=== PATIENT | male | born 1995 ===

== ENCOUNTER 2024-11-16 21:23 | Emergency (ER) | payer MEDICAID ==
[~2024-11-16] VITALS: Ht 180.3 cm; Wt 134.6 kg
[2024-11-16 21:38] VITALS: TEMP 98.6
[2024-11-16] MEDS: MAG HYDROX/ALUMINUM HYD/SIMETH 30 ML SUSPENSION UDCUP PO ONE (22:28)
[2024-11-16] MEDS: ACETAMINOPHEN 500 MG TABLET PO ONE (22:28)
[2024-11-16] MEDS: FAMOTIDINE 20 MG TABLET PO ONE (22:28)
[2024-11-16 22:40] LABS: BASOPHILS % (AUTO) 0.3 % (0.0-2.0); EOSINOPHILS % (AUTO) 1.6 % (1.0-6.0); HEMATOCRIT 42.6 % (41-53); HEMOGLOBIN 14.2 g/dL (13.5-17.5); LYMPHOCYTES # (AUTO) 3.3 K/uL (1.0-4.8); LYMPHOCYTES % (AUTO) 27.4 % (22.0-44.0); MEAN CORPUSCULAR HEMOGLOBIN 29.5 pg (26.0-34.0); MEAN CORPUSCULAR HGB CONC 33.2 G/dL (31.0-37.0); MEAN CORPUSCULAR VOLUME 89 fL (80-100); MONOCYTES # (AUTO) 0.8 K/uL (0.1-1.0); MONOCYTES % (AUTO) 6.3 % (2.0-9.0); NEUTROPHILS # (AUTO) 7.7 K/uL (1.8-7.7); NEUTROPHILS % (AUTO) 64.4 % (40.0-70.0); PLATELET COUNT (AUTO) 294 K/uL (150-450)
[2024-11-16 23:02] LABS: ANION GAP 9 mmol/L (8-16); CARBON DIOXIDE 31 mmol/L (22-29); CHLORIDE 101 mmol/L (98-107); CREATININE 0.85 mg/dL (0.60-1.30); GLOMERULAR FILTR. RATE CALC > 60 mL/min (>60); GLUCOSE,RANDOM 94 mg/dL (70-110); POTASSIUM 3.4 mmol/L (3.5-5.1); SODIUM SERUM 141 mmol/L (136-145); UREA NITROGEN, BLOOD 10 mg/dL (7-18)
[2024-11-16 23:11] LABS: TROPONIN I-HIGH SENSITIVITY 11 ng/L (<76)
[2024-11-17] MEDS: KETOROLAC TROMETHAMINE 30 MG/ML VIAL IM ONE (00:04)
[2024-11-17 01:05] LABS: TROPONIN I-HIGH SENSITIVITY 10 ng/L (<76)
[2024-11-17 01:30] VITALS: BP 163/97; PULSE 8; RESP 16; O2SAT 98
== END 2024-11-17 01:50 | disposition home or self-care (01) ==
LOC: EMS 21:23
DX: I10 Essential (primary) hypertension (principal); F17.210 Nicotine dependence, cigarettes, uncomplicated; F10.90 Alcohol use, unspecified, uncomplicated; Z91.148 Patient's other noncompliance with medication regimen for other reason; Y90.9 Presence of alcohol in blood, level not specified
CPT/HCPCS: 99285; 71045; 80048; 84484; 85025; 36415; 93005; 96372; J1885